=== PATIENT | female | born 1965 | race Caucasian/White ===

== ENCOUNTER → 2019-09-20 13:39 | Outpatient (CLI) | payer BC, SELFPAY ==
--- NOTE | ~2019-09-20 | XR_ITS ---
EXAMINATION: XR lumbar spine 2-3V DATE: 09/20/2019 13:59 INDICATION: Low back pain. TECHNIQUE: 3 views of lumbar spine were obtained. COMPARISON: None. FINDINGS: Bone alignment is normal. Vertebral body heights and intervertebral disc heights are normal . There are endplate osteophytes at a few levels. 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 Surgical clips in the right upper quadrant are likely from cholecystectomy . IMPRESSION: 1. Mild lumbar spondylosis. Reviewed, dictated and finalized at location A. APPLICATION TESTER IMPRESSION: 1. Mild lumbar spondylosis.
== END ==
PROVIDERS: PCP Family Medicine; Visit Provider Family Medicine
DX: M47.896 Other spondylosis, lumbar region (principal)
CPT/HCPCS: 72100

== ENCOUNTER 2019-11-21 16:15 | Inpatient (IN) | payer BC, SELFPAY ==
[2019-11-21] VITALS (16 sets, daily range): BP systolic 107–140; BP diastolic 62–82; PULSE 85–111; RESP 18–35; TEMP 38–39.6; O2SAT 92–99; BMI 41.6
--- NOTE | ~2019-11-21 | XR_ITS ---
EXAMINATION: XR shoulder RT min 2V INDICATION: Polyarthralgia, redness and swelling TECHNIQUE: Four views of the right shoulder are submitted. COMPARISON: None FINDINGS: Normal alignment. No fracture. Glenohumeral and acromioclavicular joint spaces are normal. Soft tissues are unremarkable. Patchy right-sided airspace opacities are again noted. IMPRESSION: No acute osseous abnormality. Reviewed, dictated and finalized at location A.
--- NOTE | ~2019-11-21 | US_ITS ---
US right upper quadrant DATE: 11/23/2019 10:08 INDICATION: Elevated liver function tests. Elevated serum bilirubin. TECHNIQUE: Real-time imaging of liver, pancreas, gallbladder COMPARISON: None FINDINGS: The gallbladder is surgically absent. The common bile duct measures 6.5 mm diameter. The liver is enlarged. No hepatic space occupying mass lesion is detected. Normal hepatopedal portal v enous flow. The pancreatic duct measures up to 3 mm. IMPRESSION: Mild prominence of the common bile duct and pancreatic duct; consider MRCP or ERCP given elevated serum bilirubin level Status post cholecystectomy Reviewed, dictated and finalized at Location A. Reviewed, dictated and finalized at location A. IMPRESSION: Mild prominence of the common bile duct and pancreatic duct; consid er MRCP or ERCP given elevated serum bilirubin level Status post cholecystectomy
--- NOTE | ~2019-11-21 | XR_ITS ---
EXAMINATION: XR knee RT 2V DATE: 11/22/2019 17:11 INDICATION: Polyarthralgia, redness and swelling TECHNIQUE: Two views of the right knee were obtained. COMPARISON: None. FINDINGS: Alignment is normal. No fracture or osteochondral lesion. There is mild tricompartmental os teoarthritis characterized by tiny marginal osteophytes. No joint effusion/synovitis. Soft tissues a re unremarkable. IMPRESSION: 1. No acute osseous abnormality. Reviewed, dictated and finalized at location A.
--- NOTE | ~2019-11-21 | XR_ITS ---
EXAMINATION: XR ankle LT 2V DATE: 11/22/2019 17:11 INDICATION: Polyarthralgia, swelling and redness TECHNIQUE: Two views of the left ankle are obtained.. COMPARISON: 07/24/2015 FINDINGS: Bone alignment is normal. There is moderate osteoarthritis at the tibiotalar joint. Surgica l changes are noted in the distal leg. No fracture is identified. There is mild osteoarthritis of the midfoot. There is mild soft tissue swelling. IMPRESSION: 1. Soft tissue swelling without acute osseous abnormality. Reviewed, dictated and finalized at location A.
--- NOTE | ~2019-11-21 | XR_ITS ---
EXAMINATION: XR elbow LT 2V INDICATION: Polyarthralgia, redness and swelling TECHNIQUE: Two views of the left elbow were obtained. COMPARISON: None available FINDINGS: There is no fracture, dislocation, or subluxation. The bones and joint spaces are normal. N o joint effusion is identified. Soft tissue swelling is noted. And antecubital IV is present. IMPRESSION: 1. Soft tissue swelling without acute osseous abnormality. Reviewed, dictated and finalized at location A.
--- NOTE | ~2019-11-21 | US_ITS ---
US renal BI DATE: 11/24/2019 09:46 INDICATION: Elevated serum creatinine TECHNIQUE: Real-time imaging of kidneys and urinary bladder COMPARISON: None FINDINGS: Right kidney measures 11 cm length, left kidney 10.8 cm length. No renal mass lesion or hyd ronephrosis is evident. There is nonspecific diffuse mild to moderate thickening of the urinary bladder wall. IMPRESSION: No renal mass lesion or hydronephrosis is detected Reviewed, dictated and finalized at Location A. Reviewed, dictated and finalized at location A.
--- NOTE | ~2019-11-21 | XR_ITS ---
XR chest 1V portable DATE: 11/21/2019 16:44 INDICATION: Cough, fever TECHNIQUE: Portable AP chest on 11/21/2019 at 1637 hours COMPARISON: None FINDINGS: Normal heart size. Mild patchy bilateral infiltrates are suggested, greatest in the right lower lobe, with lesser involvement in the left lower lung field. No hilar or mediastinal enlargement. No pleural effusion or pneumothorax IMPRESSION: Patchy mild bilateral infiltrates, right greater than left Reviewed, dictated and finalized at location A.
--- NOTE | 2019-11-21 16:26 | ECG_ITS ---
Measurements Intervals [place] Rate: 109 P: 45 MA: 133 QRS: -16 QRSD: 95 T: 34 QT: 264 QTc: 356 Interpretive Statements SINUS TACHYCARDIA DELAYED PRECORDIAL R/S TRANSITION BASELINE ARTIFACT- I, II, III, AVR, AVL, AVF ABNORMAL ECG Electronically Signed On 11-21-2019 17:33:24 CDT by Omar Atkinson D.O.
--- NOTE | 2019-11-21 16:32 | ED.URI ---
HPI - URI/Sore Throat General Chief Complaint: Upper Respiratory Infection <Vandana Gonzalez PA-C - Last Filed: 11/21/19 19:49> Stated Complaint: FLU LIKE SYMPTOMS <PRASANNA Bates Last Filed: 11/21/19 19:49> Time Seen by Provider: 11/21/19 16:25 <PRASANNA Bates Last Filed: 11/21/19 19:49> Source: patient <PRASANNA Bates Last Filed: 11/21/19 19:49> Mode of arrival: EMS <PRASANNA Bates Last Filed: 11/21/19 19:49> Limitations: no limitations <PRASANNA Bates Last Filed: 11/21/19 19:49> History of Present Illness HPI Narrative: Pt is a 54 y/o female who presents to the ED, via EMS, with c/o a dry cough and a fever of 102F that started Monday night. Per EMS, pt denied SOB, but her O2 Sat was 93% and they put her on 2L O2. Pt reports associated joint pain including her lt elbow, rt knee, rt shoulder, and lt ankle. Her PCP told her to take Tylenol 325mg every 4 hours. She states that she started having diarrhea so she went and got some imodium. Per EMS, pt was in [place] 2 weeks ago. She took Tylenol at 5AM today. <PRASANNA Bates Last Filed: 11/21/19 19:49> MD elicited complaint: fever (102F) and cough <PRASANNA Bates Last Filed: 11/21/19 19:49> Onset (ago): day(s) (4) <PRASANNA Bates Last Filed: 11/21/19 19:49> Consistency: constant and progressively worsening <PRASANNA Bates Last Filed: 11/21/19 19:49> Relieving factors: nothing <PRASANNA Bates Last Filed: 11/21/19 19:49> Context: recent travel (in [place] 2 weeks ago) <Vandana Gonzalez PA-C - Last Filed: 11/21/19 19:49> Associated symptoms: myalgias and diarrhea <PRASANNA Bates Last Filed: 11/21/19 19:49> Treatments prior to arrival: acetaminophen (325mg every 4 hours) and other (2L O2) <Vandana Gonzalez PA-C - Last Filed: 11/21/19 19:49> Related Data Home Medications: Home Medications Medication Instructions Recorded Confirmed cholecalciferol (vitamin D3) 125 unit PO 08/08/19 mcg (5,000 unit) disintegrating tablet <Vandana Gonzalez PA-C - Last Filed: 11/21/19 19:49> Allergies/Adverse Reactions: Allergies Allergy/AdvReac Type Severity Reaction Status Date / Time morphine Allergy Mild SWEATING, Verified 11/21/19 16:24 STOMACH PAIN codeine Allergy Unknown Swelling Verified 11/21/19 16:24 <Vandana Gonzalez PA-C - Last Filed: 11/21/19 19:49> Review of Systems Review of Systems: All systems reviewed & are unremarkable except as noted in HPI and below <Vandana Gonzalez PA-C - Last Filed: 11/21/19 19:49> Constitutional: Constitutional: Reports body ache(s) and Reports fever(s) (102F) <PRASANNA Bates Last Filed: 11/21/19 19:49> Respiratory: Respiratory: Reports cough (dry) and Denies dyspnea <Vandana Gonzalez PA-C - Last Filed: 11/21/19 19:49> Gastrointestinal: Gastrointestinal: Reports diarrhea <PRASANNA Bates Last Filed: 11/21/19 19:49> Musculoskeletal: Musculoskeletal: Reports arthralgias (lt elbow, rt knee, rt shoulder, and lt ankle) <PRASANNA Bates Last Filed: 11/21/19 19:49> [facility] Past Medical History Medical History: Medical History Angioedema, hereditary HTN (hypertension) <PRASANNA Bates Last Filed: 11/21/19 19:49> Surgical History Surgical History: Surgical History Ankle fracture, left History of cholecystectomy Status post tubal ligation <Vandana Gonzalez PA-C - Last Filed: 11/21/19 19:49> Social History Social History: Social History Smoking status: Never smoker Second hand tobacco smoke exposure: No Alcohol intake: current Substance use: never Substance use type: does not use Gender identity (if verbalized by the patient)
[2019-11-21 16:54] LABS: Basophils Absolute Auto 0.1 K/mm3 (0.0-0.1); Basophils Percent Auto 0.9 % (0.2-1.2); Hematocrit 33.8 % (37.0-47.0); Hemoglobin 11.6 g/dL (12.0-15.0); Immature Granulocyte Absolute 0.06 K/mm3 (0.00-0.031); Immature Granulocyte Percent A 0.7 % (0-0.5); Immature Platelet Fraction Pct 5.3 % (0.9-11.2); Lymphocytes Absolute Auto 0.57 K/mm3 (0.9-3.2); Lymphocytes Percent Auto 6.9 % (18.3-44.2); Mean Corpuscular HGB Conc 34.3 g/dl (32-36); Mean Corpuscular Hemoglobin 30.4 pg (26-34); Mean Corpuscular Volume 88.7 fl (80-100); Mean Platelet Volume 11.1 fl (7.4-10.4); Monocytes Absolute Auto 0.4 K/mm3 (0.1-0.6); Monocytes Percent Auto 5.4 % (2.6-8.5); Neutrophils Absolute Auto 7.1 K/mm3 (1.3-6.7); Neutrophils Percent Auto 86.1 % (45.5-73.1); Platelet Count Result 64 k/mm3 (150-375); Red Blood Count 3.81 M/mm3 (4.2-5.4); White Blood Count 8.2 K/mm3 (4.5-10.0)
[2019-11-21 17:05] LABS: Lactic Acid Reflex 1.2 mmol/L (0.7-2.1)
[2019-11-21] MEDS: SODIUM CHLORIDE 0.9% IV 500 ML 999 ML IV CONT (17:11)
[2019-11-21 17:16] LABS: Alanine Aminotransferase 87 U/L (4-35); Albumin Level 3.5 g/dL (3.5-5.1); Alkaline Phosphatase 135 U/L (38-126); Aspartate Amino Transferase 121 U/L (14-36); Bilirubin,Total 1.6 mg/dL (0.2-1.3); Blood Urea Nitrogen 13 mg/dL (7-17); Calcium 8.1 mg/dL (8.4-10.2); Carbon Dioxide 25 mmol/L (22-30); Chloride 96 mmol/L (98-107); Estimated Glomerular Filt Rate > 60; Glucose 115 mg/dL (65-105); Lactate Dehydrogenase 783 U/L (313-618); Potassium 3.2 mmol/L (3.4-5.0); Sodium 132 mmol/L (137-145)
[2019-11-21 17:29] LABS: Alveolar/Arterial O2 Gradient 43.7 mmHg; Base Excess ABG 1.5 mEq/l (+/-2.0); Carboxyhemoglobin 0.6 % THb (0-2.0); Fractional Inspired Oxygen 21 %; Methemoglobin ABG 0.2 %THb (0-1.5); Oxygen Content ABG 16.3 %vol (16.0-22.0); Oxygen Saturation ABG 95.4 % (95.0-100.0); Oxyhemoglobin 93.8 % THb (90.0-100.0); PCO2 ABG 31.1 mmHg (35.0-45.0); PO2 ABG 68.8 mmHg (80.0-100.0); PO2 FiO2 Ratio Arterial Blood 3.28 %; Reduced Hemoglobin 5.4 %THb (0-5.0); Total Hemoglobin 12.3 g/dL (12.0-18.0); pH ABG 7.505 (7.350-7.450)
[2019-11-21 17:30] LABS: Device ROOM AIR; Modified Allen's Test Pass; Site Drawn RIGHT RADIAL
[2019-11-21 17:58] LABS: CRP > 45.0 mg/dL (<1.0)
[2019-11-21] MEDS: POTASSIUM CHLORIDE 20 MEQ TABLET 40 MEQ PO (18:39)
--- NOTE | 2019-11-21 18:40 | PC.NURSE ---
Placed on 2L oxygen per verbal orers by EDP HEATH Ross
--- NOTE | 2019-11-21 21:03 | PC.NURSE ---
Patient report faxxed to 3rd floor at 2046.
[2019-11-21 21:16] LABS: Add Urine Microscopic? YES; Amorphous Sediment Urine Few; Appearance Urine Cloudy (Clear); Bacteria Urine Trace /hpf; Bilirubin Urine Negative (Negative); Blood Urine Negative (Negative); Color Urine Amber (Yellow); Glucose Urine UA Negative (Negative); Ketones Urine Negative (Negative); Leukocyte Esterase Ur Negative LEU/UL (Negative); Mucus Urine Rare /lpf; Nitrate Urine Negative (Negative); Protein Urine 2+ mg/dL (Negative); Specific Grav Ur 1.018 (1.001-1.035); Squamous Epithelial Cell Urine Many /hpf (Few)
--- NOTE | 2019-11-21 21:40 | ADMGEN ---
This patient, Hillary Toure, was admitted to [facility] Surg Room 329-01. Patient/family oriented to hospital policies and general routines including ID bracelet, bed and alarms, visiting hours, pain management, procedures, bathroom and other care routines, personal items, smoking policy, room service/diet, and visiting hours. Valuables list has been completed. Information on how to activate the Rapid Response Team has been discussed. Patient/Family are encouraged to report perceived risks to care and to ask questions if they do not understand what they are told or what they should do.
[2019-11-22] VITALS (18 sets, daily range): BP systolic 117–152; BP diastolic 67–81; PULSE 90–127; RESP 18–22; TEMP 37.1–39.7; O2SAT 93–97
--- NOTE | 2019-11-22 | ECHO_ITS ---
Patient Info Name: Hillary Toure Age: 54 years : 1965 Gender: Female Ht: 65 in Wt: 250 lbs BSA: 2.34 m2 HR: 100 bpm BP: 117 / 81 mmHg Heart Rhythm: Sinus Rhythm Technical Quality: Good Exam Date: 11/22/2019 11:56 AM Exam Location: [facility] Pulmonary Patient Status: Inpatient Admit Date: 11/21/2019 Staff Ordering Physician: Ese Saldana PA-C Beet Topper: Khoa Zhu RDCS Attending Provider: Ese Saldana PA-C Referring Physician: Les MARROQUIN; Exam Type: CA echo doppler color flow Study Info Indications - Concern for Endocarditis 780.6 - Fever Complete two-dimensional, color flow and Doppler transthoracic echocardiogram is performed. Strain analysis performed. History/Risk Factors HTN, positive blood cultures, SOB, PNA, hypoxia, murmur. Summary 1. Left ventricular chamber dimension is mildly enlarged. 2. Left ventricular systolic function is normal, estimated at 50-55%. 3. Left ventricular septal wall motion is abnormal with septal motion related to bundle branch block. 4. The left ventricular diastolic function is abnormal. 5. E/e' 10 is mildly elevated. 6. Global longitudinal strain is normal at -17.8%. 7. Left atrial chamber dimension is mildly enlarged. 8. There is mild aortic valve sclerosis. 9. Mild pulmonary hypertension, estimated pulmonary arterial systolic pressure is 45 mmHg. Left Ventricle E/e' 10 is mildly elevated. Global longitudinal strain is normal at -17.8%. Left ventricular chamber dimension is mildly enlarged. Left ventricular systolic function is normal, estimated at 50-55%. Left ventricular septal wall motion is abnormal with septal motion related to bundle branch block. The left ventricular diastolic function is abnormal. Right Ventricle Right ventricular chamber dimension is normal. Right ventricular systolic function is normal. Left Atria Left atrial chamber dimension is mildly enlarged. Right Atria Right atrial chamber dimension is normal. Aortic Valve The aortic valve is trileaflet. There is mild aortic valve sclerosis. There is no aortic valve stenosis. There is no aortic valve regurgitation. No aortic valve vegetation visualized. Pulmonic Valve There is no pulmonic regurgitation. No pulmonic valve vegetation visualized. Mitral Valve There is no mitral valve stenosis. There is no mitral valve regurgitation. No mitral valve vegetation visualized. Tricuspid Valve There is no tricuspid valve regurgitation. Mild pulmonary hypertension, estimated pulmonary arterial systolic pressure is 45 mmHg. No tricuspid valve vegetation visualized. Pericardium/Pleural There is no pericardial effusion. Inferior Vena Cava Normal inferior vena cava with >50% collapse upon inspiration consistent with normal right atrial pressure, 5 mmHg. Aorta The aortic root size at the sinus of Valsalva is normal. Left Ventricular Outflow Tract Name Value Normal LVOT 2D LVOT Diameter 1.7 cm LVOT Doppler LVOT Peak Gradient 9 mmHg LVOT Mean Gradient 5 mmHg
--- NOTE | 2019-11-22 01:13 | PM.IMHP ---
H&P: HPI History of Present Illness Chief complaint: Joint pain, fever, cough Narrative: Date and time of patient contact: 12/11/2019 at 11:40 p.m. Hillary Toure is a 54 year old female with a past medical history of hypertension who presented to the ER with fever and viral symptoms started on November 10. The patient reports that she had traveled to [place] to receive a furniture delivery at her new home down there. She returned from [place] on November 02. Then on November 05 she had an appointment at her dentist where they noticed and low temperature of 95.5?. However she denied started feeling ill until November 10 when she developed a fever and dry cough. She also reported fatigue and body aches. As time progressed her cough worsened and she spiked temperatures as high as 102.5 at home. She also developed arthralgias 3 days ago starting in her left elbow, left knee, right shoulder, and left ankle. She knows her joints were swollen and tender to touch. She did notice some mild erythema to her left elbow couple of days into her arthralgia symptoms. She also developed diarrhea, nausea and vomiting. She has also had anorexia. She has subjectively felt confused. She reports that her left ankle does intermittently swell ever since she had an ORIF several years ago. Usually the swelling goes down with rest. She does not think that the swelling is more so than her baseline. However she does not usually developed swelling in the extremity and left she has been standing on it for a while. When the patient arrived to the ER her temperature was a 103.3?. She received IV Tylenol, azithromycin, and Rocephin. Given her high likelihood for COVID-19 associated with poor prognostic indicators including thrombocytopenia, elevated CRP, elevated LFTs and elevated LDH with accompanying hypoxemia the patient was admitted to the hospital for care. She reports that her has remained asymptomatic. Review of Systems Review of Systems: Narrative: 12 systems were reviewed with pertinent positives and negatives per HPI. Except as documented in the HPI, all other systems were reviewed and are negative. [facility] Past Medical History Medical History (Updated 11/22/19 @ 01:42 by Brie Chao DO) Angioedema, hereditary Endometriosis HTN (hypertension) Surgical History Surgical History (Updated 11/22/19 @ 01:19 by Brie Chao DO) Ankle fracture, left ORIF [address] Armando Mujica History of cholecystectomy Status post tubal ligation Family History Family History Father Hypertension Mother TIA (transient ischemic attack) Other Cerebrovascular accident Family history of alcoholism Family history of cardiovascular disease Family history of gout Social History Social History (Updated 11/22/19 @ 01:22 by Brie Chao DO) Social History: Primary care physician: Dr. Florentino Fuentes Code status: Full code Smoking status: Never smoker Second hand tobacco smoke exposure: No Alcohol intake: current Alcohol use details: In moderation. Substance use: never Substance use type: does not use Living arrangements: with family Additional living arrangements comments: She lives with her Taj. Her and her recently bought a house in [place]. Occupation/Education: occupation Additional occupation/education comments: She is employed in the [employer] industry. Gender identity (if verbalized by the patient): Female Spiritual care concerns: No Agree to blood products: Yes Meds Home Medications and Allergies Home Medications Medication Instructions Recorded Confirmed Type cholecalciferol (vitamin D3) 125 5,000 unit PO DAILY 08/08/19 11/21/19 History mcg (5,000 unit) disintegrating tablet labetalol 200 mg tablet 200 mg PO Q12H #180 tablet 09/27/19 11/21/19 Rx acetaminophen [Tylenol] 650 mg PO Q4-6H PRN
[2019-11-22] MEDS: SODIUM CHLORIDE 0.9% IV 1,000 ML 100 ML IV CONT ×2 (02:00→12:12)
[2019-11-22] MEDS: ACETAMINOPHEN 325 MG TABLET 650 MG PO (02:25)
[2019-11-22 06:16] LABS: Basophils Absolute Auto 0.1 K/mm3 (0.0-0.1); Basophils Percent Auto 0.8 % (0.2-1.2); Hematocrit 33.5 % (37.0-47.0); Hemoglobin 11.6 g/dL (12.0-15.0); Immature Granulocyte Absolute 0.18 K/mm3 (0.00-0.031); Immature Granulocyte Percent A 1.8 % (0-0.5); Immature Platelet Fraction Pct 6.6 % (0.9-11.2); Lymphocytes Percent Auto 9.2 % (18.3-44.2); Mean Corpuscular HGB Conc 34.6 g/dl (32-36); Mean Corpuscular Hemoglobin 30.8 pg (26-34); Mean Corpuscular Volume 88.9 fl (80-100); Mean Platelet Volume 11.8 fl (7.4-10.4); Monocytes Absolute Auto 0.6 K/mm3 (0.1-0.6); Monocytes Percent Auto 6.1 % (2.6-8.5); Neutrophils Absolute Auto 8.1 K/mm3 (1.3-6.7); Neutrophils Percent Auto 82.1 % (45.5-73.1); Platelet Count Result 63 k/mm3 (150-375); Red Blood Count 3.77 M/mm3 (4.2-5.4); Red Cell Distribution Width 14.1 % (11.5-14.5); White Blood Count 9.8 K/mm3 (4.5-10.0)
[2019-11-22 06:19] LABS: Alanine Aminotransferase 82 U/L (4-35); Albumin Level 3.3 g/dL (3.5-5.1); Alkaline Phosphatase 144 U/L (38-126); Aspartate Amino Transferase 87 U/L (14-36); Blood Urea Nitrogen 13 mg/dL (7-17); Carbon Dioxide 23 mmol/L (22-30); Chloride 101 mmol/L (98-107); Estimated CRCL calculation 116 ml/min; Estimated Glomerular Filt Rate > 60; Glucose 111 mg/dL (65-105); Magnesium 2.2 mg/dL (1.6-2.3); Potassium 3.3 mmol/L (3.4-5.0); Sodium 135 mmol/L (137-145)
[2019-11-22] MEDS: GUAIFENESIN 200 MG/10 ML UDC PO (06:42)
[2019-11-22 06:52] LABS: Platelet Estimate Decreased (Adequate)
[2019-11-22] MEDS: LABETALOL HCL 100 MG TABLET 200 MG PO ×2 (08:30→21:33)
--- NOTE | 2019-11-22 08:42 | PC.NURSE ---
Ese Saldana aware of positive blood cultures x 2
--- NOTE | 2019-11-22 10:34 | PM.IMPN ---
Progress Note: A&P Assessment and Plan (1) Bacteremia: Code(s): R78.81 - Bacteremia Status: Acute Assessment and Plan: Blood cultures reveal areobic and anaerobic gram positive cocci in clusters. She has several painful joints. Source of entry may be related to oral sores. Patient is febrile., but other vitals are stable. - Continue Ceftriaxone and Vancomycin - Will consult infectious disease - Order echo due to concern for endocarditis - Will plan to repeat blood cultures in several days - Continue tylenol prn fever. (2) Polyarthralgia: Code(s): M25.50 - Pain in unspecified joint Status: Acute Assessment and Plan: Patient complaining of arthralgia in right shoulder, left elbow, right knee, and left ankle. Left elbow is warm, erythematous, and inflamed. - Consult Orthopedics due to concerns for septic joint - X-ray affected joints to evaluate for effusion - Order rapid strep to rule out possible rheumatic fever (3) Pneumonia: Qualifiers: Laterality: bilateral Lung location: lower lobe of lung Pneumonia type: due to unspecified organism Qualified Code(s): J18.9 - Pneumonia, unspecified organism Code(s): J18.9 - Pneumonia, unspecified organism Status: Acute Assessment and Plan: CXR revealed bilateral patchy infiltrates with right greater than left. She was tested for COVID-19 and results pending. She has recent history of air travel. Influenza A and B negative. She has previously been taking cough suppresants which have not improved her cough. She has been maintaining oxygen saturations of 95% on room air. - Continue Azithromycin and Ceftriaxone - Start Mucinex and Cornet to help mobilize secretions. - Continue IV fluids (4) Hypokalemia: Code(s): E87.6 - Hypokalemia Status: Acute Assessment and Plan: Potassium at 3.3 this morning. - Replete with 40 mEq potassium - Recheck potassium this afternoon (5) Thrombocytopenia: Code(s): D69.6 - Thrombocytopenia, unspecified Status: Acute Assessment and Plan: Patient has low platelets at 63. No leukocytosis in the setting of acute infection. There is concern for marrow suppression. - Will continue to monitor platelet count - Continue daily CBC with diff. Subjective Date/time seen: 11/22/19 10:34 Interval history: Date of service: 11/22/2019 Ms. Toure is seen and reports she is very anxious today and is tearful on assessment. She reports ongoing cough and SOB that is worse when she talks or moves. She is on room air. If she lays still, her SOB improves. She denies chest pain. She continues to have fevers but denies chills. She denies dizziness or lightheadedness. She continues to complain of joint pain. She reports that pain started in her left elbow, then she had pain in her right knee, then left ankle, and finally right shoulder. She reports they are warm and swollen and painful with movement. Her right shoulder is most bothersome. She denies any rashes or skin changes. She recently had an bilingual customer service appointment and has several sores in her mouth secondary to braces. She had an episode of diarrhea this morning. She is urinating without difficulty. She reports she has not been sleeping as she is in pain and feeling anxious. Review of Systems Review of Systems: Narrative: A 12 point review of systems was reviewed and unremarkable except as noted in HPI and below Constitutional: weakness, fatigue, fevers, no dizziness or lightheadedness EENT: no visual disturbances, no difficulty hearing, no rhinorrhea, no dysphagia, mouth sores CV: no chest pain, SOB Respiratory: cough, congestion GI: no abdominal pain, no nausea or vomiting, diarrhea : no dysuria, no urgency or frequency, no hematuria Skin: no rashes or lesions MSK: arthralgia as per HPI Neuro: no headache, no memory loss, no confusion Psych: anxiety, no depression Heme: no bleeding or bruising Endo
[2019-11-22] MEDS: LOPERAMIDE HCL 2 MG CAPSULE PO (12:10)
[2019-11-22] MEDS: POTASSIUM CHLORIDE 20 MEQ TABLET 40 MEQ PO ×2 (12:10→18:12)
[2019-11-22 15:23] LABS: Potassium 3.3 mmol/L (3.4-5.0)
[2019-11-22] MEDS: IBUPROFEN 400 MG TABLET PO (19:28)
[2019-11-23] VITALS (13 sets, daily range): BP systolic 111–123; BP diastolic 70–76; PULSE 81–105; RESP 18–20; TEMP 36.4–37.8; O2SAT 94–97
[2019-11-23 06:33] LABS: Basophils Percent Auto 0.1 % (0.2-1.2); Eosinophils Absolute Auto 0.1 K/mm3 (0-0.3); Eosinophils Percent Auto 0.4 % (0-4.4); Hematocrit 29.3 % (37.0-47.0); Hemoglobin 9.9 g/dL (12.0-15.0); Immature Granulocyte Absolute 0.12 K/mm3 (0.00-0.031); Immature Granulocyte Percent A 0.9 % (0-0.5); Immature Platelet Fraction Pct 6.2 % (0.9-11.2); Lymphocytes Absolute Auto 1.03 K/mm3 (0.9-3.2); Lymphocytes Percent Auto 7.8 % (18.3-44.2); Mean Corpuscular HGB Conc 33.8 g/dl (32-36); Mean Corpuscular Hemoglobin 30.9 pg (26-34); Mean Corpuscular Volume 91.6 fl (80-100); Mean Platelet Volume 12.1 fl (7.4-10.4); Monocytes Absolute Auto 0.8 K/mm3 (0.1-0.6); Monocytes Percent Auto 5.8 % (2.6-8.5); Neutrophils Absolute Auto 11.3 K/mm3 (1.3-6.7); Platelet Count Result 78 k/mm3 (150-375); White Blood Count 13.3 K/mm3 (4.5-10.0)
[2019-11-23 06:45] LABS: Alanine Aminotransferase 64 U/L (4-35); Albumin Level 2.7 g/dL (3.5-5.1); Alkaline Phosphatase 124 U/L (38-126); Aspartate Amino Transferase 68 U/L (14-36); Bilirubin,Total 1.8 mg/dL (0.2-1.3); Blood Urea Nitrogen 20 mg/dL (7-17); Calcium 7.2 mg/dL (8.4-10.2); Carbon Dioxide 19 mmol/L (22-30); Chloride 103 mmol/L (98-107); Estimated CRCL calculation 46 ml/min; Estimated Glomerular Filt Rate 34; Glucose 116 mg/dL (65-105); Magnesium 2.2 mg/dL (1.6-2.3); Potassium 3.3 mmol/L (3.4-5.0); Sodium 131 mmol/L (137-145)
[2019-11-23] MEDS: LABETALOL HCL 100 MG TABLET 200 MG PO ×2 (09:59→20:54)
[2019-11-23] MEDS: POTASSIUM CHLORIDE 20 MEQ TABLET 40 MEQ PO (10:00)
[2019-11-23] MEDS: LORATADINE 10 MG TABLET PO (10:00)
[2019-11-23] MEDS: CHOLECALCIFEROL 1,000 UNIT TABLET 5000 UNITS PO (10:00)
--- NOTE | 2019-11-23 11:18 | PM.CNOR ---
Assessment and Plan Assessment and plan (1) Arthralgia of multiple joints: Code(s): M25.50 - Pain in unspecified joint Status: Acute (2) Olecranon bursitis, left elbow: Code(s): M70.22 - Olecranon bursitis, left elbow Status: Acute Assessment and Plan: 54-year-old female with multiple joint pains in the setting of a pneumonia, septicemia, and possible Covid 19 infection. Her rapid response of pain to the administration of antibiotics is encouraging and merits watchful waiting. Regarding the olecranon bursa, there is some fluctuance there but no irritability at this point in the erythema over the elbow was just about resolved. May need to aspirate this at some point. Her thrombocytopenia and other elevated indices are concerning and at this point she would be considered not a great surgical risk. Thank you for the consultation. I will continue to follow during the hospitalization. History of Present Illness HPI Consult date: 11/23/19 Consult reason: other (Joint pains) Chief complaint: Bilateral pneumonia, Hypoxia Narrative: 54-year-old female who has been admitted with pneumonia and septicemia. She is also experiencing joint pains. Trouble began in her left elbow about five days ago and then started in her right knee. Following that she had pain in her right shoulder and left ankle. Since getting started on the antibiotics last night she said that the majority of her pains have disappeared. She is considered likely a Covid 19 patient as those results are pending. Review of Systems Eyes: Eyes: Reports no additional eye complaints ENT: Reports system reviewed and no additional complaints, except as documented Cardiovascular: Cardiovascular: Denies chest pain at rest and Denies dyspnea Respiratory: Respiratory: Reports no additional respiratory complaints and Denies dyspnea Gastrointestinal: Gastrointestinal: Reports no additional gastrointestinal complaints Musculoskeletal: Musculoskeletal: Reports as per HPI Integumentary/Breasts: Skin/Breast: Reports system reviewed and no additional complaints, except as docu Neurologic: Reports as per HPI Endocrine: Endocrine: Reports excessive sweating (With fever) and Reports fatigue (Over the past week) Hematologic/Lymphatic: Hematologic/Lymphatic: Denies easy bleeding and Denies easy bruising PMFSH Past Medical History Medical History Angioedema, hereditary Endometriosis HTN (hypertension) Surgical History Surgical History Ankle fracture, left ORIF [address] Armando Mujica History of cholecystectomy Status post tubal ligation Family History Family History Father Hypertension Mother TIA (transient ischemic attack) Other Cerebrovascular accident Family history of alcoholism Family history of cardiovascular disease Family history of gout Social History Social History Social History: Primary care physician: Dr. Florentino Fuentes Code status: Full code Smoking status: Never smoker Second hand tobacco smoke exposure: No Alcohol intake: current Alcohol use details: In moderation. Substance use: never Substance use type: does not use Living arrangements: with family Additional living arrangements comments: She lives with her Taj. Her and her recently bought a house in [place]. Occupation/Education: occupation Additional occupation/education comments: She is employed in the [employer] industry. Gender identity (if verbalized by the patient): Female Spiritual care concerns: No Agree to blood products: Yes Meds Home Medications and Allergies Home Medications Medication Instructions Recorded Confirmed Type cholecalciferol (vitamin D3) 125 5,000 unit P
--- NOTE | 2019-11-23 12:53 | PM.IMPN ---
Progress Note: A&P Assessment and Plan (1) Bacteremia: Code(s): R78.81 - Bacteremia Status: Acute Assessment and Plan: Blood cultures positive for S. aureus. She has several painful joints. Source may be related to oral sores or respiratory infection. She was febrile up to 103.4 on 11/21. She has remained afebrile today. TTE does not reveal vegetations. - Continue Ceftriaxone and Vancomycin. Dr. Guillen is following and recommendations are appreciated. - Await sensitivities of blood cultures - Order sputum culture to determine causative organism - Stop Tylenol prn fever due to LFT and hepatomegaly. - Will give intermittent doses of ibuprofen prn fever but will limit due to renal function and pending COVID-19 test. (2) Polyarthralgia: Code(s): M25.50 - Pain in unspecified joint Status: Acute Assessment and Plan: Patient complaining of arthralgia in right shoulder, left elbow, right knee, and left ankle. X-rays of joints reveal soft tissue swelling in ankle and elbow. No abnormalities of shoulder and knee. Arthralgia is improving. - Dr. Alas is following due to concern for septic joint. Will continue to monitor - Order uric acid level to rule out gout, although small joint involvement is minimal (3) Pneumonia: Qualifiers: Laterality: bilateral Lung location: lower lobe of lung Pneumonia type: due to unspecified organism Qualified Code(s): J18.9 - Pneumonia, unspecified organism Code(s): J18.9 - Pneumonia, unspecified organism Status: Acute Assessment and Plan: CXR revealed bilateral patchy infiltrates with right greater than left. She was tested for COVID-19 and results pending. She has recent history of air travel. Influenza A and B negative. She has previously been taking cough suppresants which have not improved her cough. She has been maintaining oxygen saturations of 95% on room air. - Continue Ceftriaxone. Azithromycin stopped per Dr. Guillen - Continue Mucinex and Cornet to help mobilize secretions. - Continue IV fluids (4) Acute kidney failure: Code(s): N17.9 - Acute kidney failure, unspecified Status: Acute Assessment and Plan: Creatinine 0.7 at presentation and increased to 1.6 today. Unlikely pre-renal as she has been receiving IV fluids. Bladder scan showed no urinary retention. May be intrinsic due to antibiotic use. - Order urine eosinophils to evaluate for AIN. - Order urine electrolytes. - Continue IV fluids - Continue to monitor kidney function. (5) Hypokalemia: Code(s): E87.6 - Hypokalemia Status: Acute Assessment and Plan: Potassium at 3.3 this morning. May be related to GI losses from diarrhea. - Replete with 40 mEq potassium - Continue to monitor potassium level (6) Thrombocytopenia: Code(s): D69.6 - Thrombocytopenia, unspecified Status: Acute Assessment and Plan: Patient has low platelets at 78. Small increase from yesterday 65. - Continue to monitor CBC. (7) Elevated liver enzymes: Code(s): R74.8 - Abnormal levels of other serum enzymes Status: Acute Assessment and Plan: LFTs are elevated. Total bili elevated. - Order RUQ US to evaluate liver - Order hepatitis panel - Hold tylenol - Continue to trend LFT. (8) Diarrhea: Code(s): R19.7 - Diarrhea, unspecified Status: Acute Assessment and Plan: Patient experiencing 1 episode of liquid brown stools today and several episodes yesterday. May be attributed to antibiotic use. - Begin probiotic - Begin banatrol dietary supplement. - Continue to monitor Subjective Date/time seen: 11/23/19 12:54 Interval history: Date of service: 11/23/2019 Ms. Toure reports she is feeling better today. She reports that her joint pain is improving. Her left elbow and left ankle pain has nearly resolved and her right shoulder and right knee are both improved.
--- NOTE | 2019-11-23 16:15 | WPDINFPN2 ---
Progress Note: A&P Assessment and Plan (1) Bacteremia: Code(s): R78.81 - Bacteremia Status: Acute Assessment and Plan: IMP 1. Fever due to S. aureus bacteremia with infection. Potential source: LS spine, cutaneous, lung, cannot exclude but unlikely gingival. 2. Arthralgias,secondary to #1, doubt primary source 3. Distant past L ankle fracture, no post op infection REC Stop isolation. Ancef instead of Ctx, and continue vanc # 3, target trough 15-20. MRI of LS spine. Repeat BCs. TTE = no infection, DARYL is unnecessary. Will need 4-6 weeks IV rx. Subjective Date/time seen: 11/23/19 16:15 Objective Data Vital Signs Vital Signs: Vital Signs - 24 hr 11/22/19 18:00 11/22/19 19:28 11/22/19 20:00 Temperature 39.7 C H 39.7 C H Pulse Rate 125 H 118 H Respiratory Rate 22 H Blood Pressure 152/77 H Pulse Oximetry 96 11/22/19 21:32 11/22/19 21:33 11/22/19 22:00 Temperature 37.2 C 37.2 C Pulse Rate 108 H 108 H Respiratory Rate 22 H Blood Pressure 126/67 Pulse Oximetry 94 11/23/19 00:00 11/23/19 02:00 11/23/19 04:00 Temperature 36.4 C Pulse Rate 82 87 81 Respiratory Rate 20 Blood Pressure 121/72 Pulse Oximetry 96 11/23/19 06:00 11/23/19 09:59 11/23/19 10:00 Temperature 37.1 C 36.7 C Pulse Rate 90 90 87 Respiratory Rate 20 20 Blood Pressure 123/70 123/76 Pulse Oximetry 97 97 11/23/19 14:00 11/23/19 14:39 Temperature 36.8 C 36.8 C Pulse Rate 82 82 Respiratory Rate 18 18 Blood Pressure 111/73 111/73 Pulse Oximetry 97 97 Intake/Output Intake/Output: Intake & Output 11/20/19 11/21/19 11/22/19 11/23/19 23:59 23:59 23:59 23:59 Intake Total 900 4090 420 Output Total 500 750 Balance 900 3590 -330 Meds/Results Medications: Active Medications Generic Name Dose Route Start Last Admin Trade Name Freq PRN Reason Stop Dose Admin Acetaminophen 650 mg 11/22/19 01:09 11/22/19 02:25 Tylenol Tablet PO 650 mg Q4-6H PRN Administration Pain Rated 1-3 Artificial Tears 1 drop 11/22/19 08:38 Artificial Tears EACH EYE PRN PRN Dry Eye(s) Benzocaine 1 applic 11/22/19 11:17 Anbesol Maximum Strength Gel BY MOUTH QID PRN Oral Pain Guaifenesin 200 mg 11/22/19 05:00 11/22/19 06:42 Guaifenesin Liq PO 200 mg Q4H PRN Administration Cough Sodium Chloride 1,000 mls @ 100 mls/hr 11/22/19 01:10 11/22/19 12:12 Normal Saline Iv IV CONT 100 mls/hr .Q10H ESTER Administration Vancomycin HCl 2,000 mg in 500 mls @ 250 mls/hr 11/22/19 07:00 11/23/19 09:58 Vancomycin 2,000 Mg/D5w 500 Ml IVPB 250 mls/hr Q12H ESTER Administration Cefazolin Sodium 2 gm in 50 mls @ 100 mls/hr 11/23/19 16:15 Ancef 2 Gm/D5w 50 Ml IVPB Q8HR ESTER Labetalol HCl 200 mg 11/22/19 09:00 11/23/19 09:59 Trandate PO 200 mg Q12HR ESTER Administration Loratadine 10 mg 11/22/19 09:00 11/23/19 10:00 Claritin PO 10 mg DAILY ESTER Administration Melatonin 5 mg 11/22/19 11:13 Melatonin PO HS PRN insomnia Ondansetron HCl 4 mg 11/22/19 01:31 Zofran Inj IV PUSH Q6H PRN Nausea And Vomiting Saccharomyces Boulardii 250 mg 11/23/19 17:00 Florastor PO BID ESTER Vitamin D 5,000 unit 11/22/19 09:00 11/23/19 10:00 Vitamin D PO 5,000 unit DAILY ESTER Administration Radiology Results: ITS Impressions Chest X-Ray 11/21/19 17:01 IMPRESSION: Patchy mild bilateral infiltrates, right greater than left Ankle X-Ray 11/22/19 17:13 IMPRESSION: 1. Soft tissue swelling without acute osseous abnormality. Knee X-Ray 11/22/19 17:18 IMPRESSION: 1. No acute osseous abnormality. Elbow X-Ray 11/22/19 17:27 IMPRESSION: 1. Soft tissue swelling without acute osseous abnormality. Shoulder X-Ray 11/22/19 17:28 IMPRESSION: No acute osseous abnormality. Upper Quadrant Ultrasound 11/23/19 11:15 IMPRESSION: Mild prominence of the com
[2019-11-23] MEDS: ceFAZolin 2 GM/D5W 50 ML 2 GM/50 ML BAG IVPB (18:24)
[2019-11-23] MEDS: SACCHAROMYCES BOULARDII 250 MG CAPSULE PO (18:25)
[2019-11-23] MEDS: GUAIFENESIN 200 MG/10 ML UDC PO (18:30)
[2019-11-23 18:37] LABS: Uric Acid 5.8 mg/dL (2.5-7.5)
--- NOTE | 2019-11-23 18:45 | CONS_ITS ---
DATE OF CONSULTATION: 11/23/2019 REASON FOR CONSULTATION: Positive blood cultures. HISTORY OF PRESENT ILLNESS: The patient is a 54-year-old female who had repair of a bimalleolar fracture some 6 years ago at this hospital, operative repair by Dr. Lund, 02/28/2013. There are no postoperative wound infections. She has no other prosthetic devices in place. In July, she had new onset of low lumbar bilateral back pain, which improved temporarily, however, when she was making the bed on 08/15 at her new home in [place], she had recurrent and more severe back pain. She went to local emergency room where analgesics were prescribed. She since then has had plain films of the LS-spine and apparently no abnormalities have been seen. She also was seen in this emergency room on 08/02/2019. She was given naproxen, which she took for about 4 weeks with improvement. She then attended physical therapy until middle of October, has had improvement in the back pain in the interim. Otherwise, she was in her usual state of health until 4 days before admission. She woke up from a nap in the late evening and went to bed at which point she noted to have shaking chills. She was able to sleep tonight, but the following morning still had the chills and now left olecranon pain. The following day, she had right knee pain and the day after right shoulder pain. The chills have persisted and she has had fever at home into the low 39 range on a regular basis. She presented to the emergency room on the afternoon, the , and was admitted. She was started on vancomycin and ceftriaxone, remains on those now. Blood cultures turned positive yesterday. She has had considerable improvement in her arthralgias, except for the right shoulder which remains painful and with diminished range of motion. She is able to walk with the aid of a walker. She has been on no immunosuppressants, nor antibiotics, otherwise in the last 4 months for any reason. She has had several erythematous skin lesions over the right arm, but no other skin injuries or skin breakdown. She has had her intermittent cough in the last 4 days, not productive of purulence nor bloody sputum. There has been no chest pain. No diarrhea. She has had braces on her teeth as concern that they have been irritating the gum lining. ALLERGIES: MORPHINE AND CODEINE. PRESENT MEDICATIONS: Above antibiotics. No immunosuppressants. HABITS: Social drinker. No tobacco. PAST MEDICAL HISTORY: In addition to the above, cholecystectomy, BTL, hypertension, angioedema, endometriosis. REVIEW OF SYSTEMS: Weight gain over the recent years. Edema of the left ankle chronically since her surgery. 14-point review otherwise negative. FAMILY HISTORY: Hypertension, stroke, gout. SOCIAL HISTORY: She has 2 grown children and also 2 grand children. Her mother unfortunately had a shoulder fracture in August and the patient has been assisting her mother with physical therapy appointment. The patient is employed in the [employer] industry. PHYSICAL EXAMINATION: GENERAL: This is a female, who appears her actual age. No acute distress. VITAL SIGNS: On arrival, she was 39.6 and has now defervesced though T-max in last 24 hours 39.7, blood pressure 111/73. She has had no hypotension. Pulse 82, respirations 18, 97% room air. SKIN: Two erythematous lesions of the right anterior upper arm, each about half a centimeter in diameter and nonspecific in appearance, flat. No breaks in the skin. No ulcerations. NODES: No cervical adenopathy. EENT: Conjunctivae are normal. Pupils equal, round, and reactive to light. No paranasal sinus erythema, edema or tenderness. She has had braces on her teeth, but no evidence of gingivitis on oral exam and no thrush. No other oral l
[2019-11-23] MEDS: SODIUM CHLORIDE 0.9% IV 1,000 ML 100 ML IV CONT (18:56)
[2019-11-23 19:09] LABS: Hepatitis B Surface Antigen Negative (Negative); Vancomycin Trough 42.4 ug/mL (10.0-20.0)
[2019-11-23 19:15] LABS: HAV RESULT Negative (Negative); Hepatitis B Core IgM Result Negative (Negative)
[2019-11-23 19:26] LABS: Add Urine Microscopic? YES; Amorphous Sediment Urine Moderate; Appearance Urine Cloudy (Clear); Bacteria Urine Trace /hpf; Bilirubin Urine Negative (Negative); Blood Urine 1+ (Negative); Color Urine Yellow (Yellow); Glucose Urine UA Negative (Negative); Ketones Urine Negative (Negative); Leukocyte Esterase Ur Negative LEU/UL (NEGATIVE); Nitrate Urine Negative (Negative); Protein Urine Negative (Negative); RBC Urine 0-2 /hpf (0-2); Specific Grav Ur 1.005 (1.001-1.035); Squamous Epithelial Cell Urine Few /hpf (Few); Urobilinogen Urine Negative mg/dL (<2.0); WBC Urine 0-3 /hpf (0-3)
[2019-11-23 19:26] LABS: HIV 1/2 Ab P24 Ag Result Negative (Negative); Hepatitis C Virus Antibody Negative (Negative)
[2019-11-23 20:13] LABS: Creatinine Urine 39.2 mg/dL; Sodium Urine Random 6 meq/L
[2019-11-24] VITALS: PULSE 99
[2019-11-24 02:00] VITALS: BP 138/82; PULSE 84; RESP 18; TEMP 37.2; O2SAT 96
[2019-11-24 04:00] VITALS: PULSE 94
[2019-11-24] MEDS: ceFAZolin 2 GM/D5W 50 ML 2 GM/50 ML BAG IVPB (04:44)
[2019-11-24] MEDS: SODIUM CHLORIDE 0.9% IV 1,000 ML 100 ML IV CONT (04:44)
[2019-11-24 05:39] VITALS: BP 138/85; PULSE 100; RESP 18; TEMP 37.4; O2SAT 95
[2019-11-24 06:21] LABS: Basophils Percent Auto 0.2 % (0.2-1.2); Eosinophils Absolute Auto 0.1 K/mm3 (0-0.3); Eosinophils Percent Auto 0.5 % (0-4.4); Hematocrit 28.3 % (37.0-47.0); Hemoglobin 9.9 g/dL (12.0-15.0); Immature Granulocyte Absolute 0.24 K/mm3 (0.00-0.031); Immature Granulocyte Percent A 1.3 % (0-0.5); Lymphocytes Absolute Auto 1.74 K/mm3 (0.9-3.2); Lymphocytes Percent Auto 9.6 % (18.3-44.2); Mean Corpuscular Volume 85.8 fl (80-100); Mean Platelet Volume 11.4 fl (7.4-10.4); Monocytes Absolute Auto 1.1 K/mm3 (0.1-0.6); Monocytes Percent Auto 6.2 % (2.6-8.5); Neutrophils Absolute Auto 14.9 K/mm3 (1.3-6.7); Neutrophils Percent Auto 82.2 % (45.5-73.1); Platelet Count Result 158 k/mm3 (150-375); Red Cell Distribution Width 14.4 % (11.5-14.5); White Blood Count 18.1 K/mm3 (4.5-10.0)
[2019-11-24 06:24] LABS: Alanine Aminotransferase 54 U/L (4-35); Albumin Level 2.7 g/dL (3.5-5.1); Alkaline Phosphatase 136 U/L (38-126); Aspartate Amino Transferase 55 U/L (14-36); Bilirubin,Total 1.3 mg/dL (0.2-1.3); Blood Urea Nitrogen 32 mg/dL (7-17); Calcium 7.7 mg/dL (8.4-10.2); Carbon Dioxide 17 mmol/L (22-30); Chloride 105 mmol/L (98-107); Estimated CRCL calculation 22 ml/min; Estimated Glomerular Filt Rate 14; Glucose 92 mg/dL (65-105); Magnesium 2.4 mg/dL (1.6-2.3); Potassium 3.9 mmol/L (3.4-5.0); Sodium 132 mmol/L (137-145)
[2019-11-24 08:00] VITALS: PULSE 100
[2019-11-24] MEDS: LABETALOL HCL 100 MG TABLET 200 MG PO (09:38)
[2019-11-24] MEDS: ACETAMINOPHEN 325 MG TABLET 650 MG PO ×2 (09:39→14:22)
[2019-11-24] MEDS: SACCHAROMYCES BOULARDII 250 MG CAPSULE PO (09:41)
--- NOTE | 2019-11-24 10:34 | PM.IMPN ---
Progress Note: A&P Assessment and Plan (1) Bacteremia: Code(s): R78.81 - Bacteremia Status: Acute Assessment and Plan: Blood cultures positive for Staph aureus. Source may be related to oral sores or respiratory infection. She was febrile with Tmax of 103.4F on 11/21. She has remained afebrile today. TTE does not reveal vegetations. - Will initiate transfer request to [facility] at request of patient and family. - Continue Cefazolin and Vancomycin. Dr. Guillen is following and recommendations are appreciated. - Continue to monitor Vancomycin trough. Trough elevated today at 42.4. I spoke with Pharmacy who is holding dose until repeat trough. - Await sensitivities of blood cultures - Avoid Tylenol prn fever due to elevated LFT and hepatomegaly. - Will give intermittent doses of ibuprofen prn fever but will limit due to renal function. Patient has been afebrile. She did receive 400 mg ibuprofen on 11/21 due to fever. - Cardiology consult for possible DARYL but will cancel as DARYL will not be required (2) Polyarthralgia: Code(s): M25.50 - Pain in unspecified joint Status: Acute Assessment and Plan: Patient complaining of arthralgia in right shoulder, left elbow, right knee, and left ankle. X-rays of joints reveal soft tissue swelling in ankle and elbow. No abnormalities of shoulder and knee. Arthralgia is improving. Uric acid is wnl. - Dr. Alas is following in the event joint aspiration becomes necessary. Will continue to monitor - Continue to monitor and assess for any new joint involvement. (3) Pneumonia: Qualifiers: Laterality: bilateral Lung location: lower lobe of lung Pneumonia type: due to unspecified organism Qualified Code(s): J18.9 - Pneumonia, unspecified organism Code(s): J18.9 - Pneumonia, unspecified organism Status: Acute Assessment and Plan: CXR revealed bilateral patchy infiltrates with right greater than left. COVID-19 negative. Influenza A and B negative. She has previously been taking cough suppresants which did not improve her cough. She has been maintaining oxygen saturations of 95% on room air. Her cough is improving. - Continue Cefazolin. Previously on Ceftriaxone and Azithromycin which were stopped per Dr. Guillen - Continue Mucinex and Cornet to help mobilize secretions. - Continue IV fluids - Sputum culture ordered and pending. (4) Acute kidney failure: Code(s): N17.9 - Acute kidney failure, unspecified Status: Acute Assessment and Plan: Creatinine 0.7 at presentation, 1.6 on 11/22, and 3.9. Unlikely pre-renal as she has been receiving IV fluids, but may indicate third spacing. Bladder scan showed no urinary retention. May be intrinsic due to antibiotic use although onset is rather soon. Urine sodium and creatinine normal. - Consult nephrology. I spoke to Dr. Anne who will see patient today. Recommendations are appreciated. - Initiate Garcia catheter to measure I&O. - Await results of urine eosinophils to evaluate for AIN. - Continue IV fluids - Continue to monitor kidney function. (5) Hypokalemia: Code(s): E87.6 - Hypokalemia Status: Acute Assessment and Plan: Patient previously hypokalemic which may be related to GI losses from diarrhea she had been previously having. Potassium stable at 3.9 today. - Continue to monitor potassium level (6) Thrombocytopenia: Code(s): D69.6 - Thrombocytopenia, unspecified Status: Acute Assessment and Plan: At presentation, platelets 64. TCP is slowly improving and platelets are 158. May be related to infection. - Continue to monitor CBC. (7) Diarrhea: Code(s): R19.7 - Diarrhea, unspecified Status: Acute Assessment and Plan: Patient experienced liquid brown stools on 11/21 and 11/22. May be attributed to antibiotic use. No episodes of diarrhea overnight or this morning. - Continu probiotic and
--- NOTE | 2019-11-24 11:30 | PM.CNNEP ---
Assessment and Plan Assessment and plan (1) Acute kidney failure: Code(s): N17.9 - Acute kidney failure, unspecified Status: Acute Assessment and Plan: Hillary has acute kidney injury. This is in the setting of Staph sepsis with multiple issues including toxic hepatitis, polyarthralgia, elevated white count and low platelet count. It is tempting to say that all of this is from staph sepsis. Certainly staph sepsis could cause each of these issues including the acute kidney injury. Sometimes there is 3rd spacing with sepsis and so she could have pre renal azotemia. However she is getting IV fluids. Sometimes patients can develop acute tubular necrosis from sepsis. It is a bit strange that she was sick for a week before she came in and then had high fevers the 1st couple of days of her hospital stay but it was not until things were getting better that her kidney started getting worse. Sometimes antibiotics can cause renal failure but usually this is more slow in coming rather than this sharp up turn in creatinine. She did not have previous exposure to vancomycin. She does not have a rash and does not have eosinophilia (however her neutrophilia would hide this sort of thing ). Rhabdomyolysis could occur with infection as well. She did have a little bit of blood in her urine and the liver enzymes could possibly come from the muscle. A vasculitic process could happen in the response to it infection as well. I would doubt if this is something like lupus but were can't rule that completely out in this setting. Will get serology, CPK, urine electrolytes and eosinophils. (2) Bacteremia: Code(s): R78.81 - Bacteremia Status: Acute Assessment and Plan: She has MSSA in the blood. She is on antibiotics (3) Elevated liver enzymes: Code(s): R74.8 - Abnormal levels of other serum enzymes Status: Acute Assessment and Plan: This is most likely due to the infection. (4) Arthralgia of multiple joints: Code(s): M25.50 - Pain in unspecified joint Status: Acute Assessment and Plan: This may be due to infection as well. Dr. Alas is following in case something needs to be aspirated. (5) Thrombocytopenia: Code(s): D69.6 - Thrombocytopenia, unspecified Status: Acute Assessment and Plan: This may be due to infection as well. Is better today. (6) HTN (hypertension): Code(s): I10 - Essential (primary) hypertension Status: Acute Assessment and Plan: Blood pressure has been doing well. 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 History of Present Illness Reason for Consult Consult date: 11/24/19 Chief Complaint Chief complaint: Bilateral pneumonia, Hypoxia History of Present Illness Narrative: Hillary is a very pleasant 54-year-old lady who was previously healthy except for hypertension, hereditary angioedema and endometriosis. Patient's problem started about 1 week ago when she had a fever and a chill. She noted pain in her left elbow. Over the last week she has had fevers often on up to 102.5. She has had progressively more joint pains including right knee, right shoulder, left elbow, and left foot. The ones that happened at 1st her are starting to get better. But the more recent ones are still hurting. She has recent developed some right-sided back pain at the base of her ribs. She also had nausea vomiting diarrhea. Things were just getting worse and worse so she decided to come to the emergency room. There she had a fever above 103. She had a normal white count. Her blood cultures were done she was placed on broad-spectrum antibiotics and she was admitted to the hospital. She was running fevers on the 2nd and the 3rd but late on the 3rd and yesterday and this morning she has not had any more fevers.
[2019-11-24] MEDS: LIDOCAINE 5% PATCH 1 PATCH TRANSDERM (14:21)
--- NOTE | 2019-11-24 14:51 | PC.NURSE ---
Pt transferred to [place] via ambulance at 1444.
--- NOTE | 2019-11-24 18:11 | PM.TDS ---
Transfer Discharge Sum: Prov Provider Date of admission: 11/21/19 19:24 Primary care physician: Florentino Fuentes MD Admitting clinician: Everett Hoskins MD Consults: 11/22/19 Consult to Physician Routine Comment: Spoke with Madonna Valladares @ 1500 ([place]) Consulting Provider: Tonny Alba yardage caller/MD group to consult: Cardiology Reason for consultation: Endocarditis Has provider been notified: Yes Consult to Physician Routine Comment: Spoke with Dr Guillen @ 1505 (,[place]) Consulting Provider: Estuardo Guillen yardage caller/MD group to consult: Dr. Guillen Reason for consultation: Possible endocarditis Has provider been notified: Yes 11/22/19 14:13 Consult to Physician Routine Comment: Spoke with Dr Alas @ 1413 Consulting Provider: Mike Alas yardage caller/MD group to consult: Orthopedics Reason for consultation: Polyarthralgia with erythema and warmth, positive blood cultures Has provider been notified: Yes 11/24/19 Consult to Physician Routine Comment: Consulting Provider: Grupo Anne yardage caller/MD group to consult: Dr. Anne Reason for consultation: STANLEY Has provider been notified: Yes Attending physician on discharge: Edinson Melgar Discharging clinician: Ese Saldana Anticipated date of transfer: 11/24/19 Receiving physician/facility: Dr. Jones/[facility] DS: Diagnosis Admitting Diagnosis Admitting Diagnosis: Pneumonia, unspecified organism Discharge Diagnosis (1) Bacteremia: Code(s): R78.81 - Bacteremia Status: Acute (2) Polyarthralgia: Code(s): M25.50 - Pain in unspecified joint Status: Acute (3) Pneumonia: Qualifiers: Laterality: bilateral Lung location: lower lobe of lung Pneumonia type: due to unspecified organism Qualified Code(s): J18.9 - Pneumonia, unspecified organism Code(s): J18.9 - Pneumonia, unspecified organism Status: Acute (4) Acute kidney failure: Code(s): N17.9 - Acute kidney failure, unspecified Status: Acute (5) Hypokalemia: Code(s): E87.6 - Hypokalemia Status: Acute (6) Thrombocytopenia: Code(s): D69.6 - Thrombocytopenia, unspecified Status: Acute (7) Diarrhea: Code(s): R19.7 - Diarrhea, unspecified Status: Acute (8) Hepatomegaly: Code(s): R16.0 - Hepatomegaly, not elsewhere classified Status: Acute (9) Low back pain: Code(s): M54.5 - Low back pain Status: Acute Transfer Discharge Sum: Med Medications Active and Home Medications: Home Medications cholecalciferol (vitamin D3) 125 mcg (5,000 unit) disintegrating tablet 5,000 unit PO DAILY 08/08/19 [History Confirmed 11/21/19] labetalol 200 mg tablet 200 mg PO Q12H #180 tablet 09/27/19 [Rx Confirmed 11/21/19] acetaminophen [Tylenol] 650 mg PO Q4-6H PRN 11/21/19 [History Confirmed 11/21/19] benzonatate 100 mg capsule 100 mg PO TID PRN 10 Days #30 cap 11/21/19 [Rx Confirmed 11/21/19] loratadine [Claritin] 10 mg PO DAILY 11/21/19 [History Confirmed 11/21/19] polyethylene glycol 400 [Blink Tears] 1 % OPHTHALMIC (EYE) PRN PRN 11/22/19 [History Confirmed 11/22/19] Transfer Discharge Sum: Hosp Hospital Course Hospital course: Hillary Toure is a 54 year old female with a past medical history significant for hypertension who presented to the emergency department on 11/21/19 with complaints of 4 days of fever with Tmax 102.5, cough, and diarrhea, as well as arthralgia in right shoulder, right knee, left elbow, and left ankle. She had been taking tylenol for fever, robitussin for cough, and immodium for diarrhea. She did not get better which prompted her to seek care. She traveled to [place] on 11/03/19. She was admitted to the hospitalist service on 11/21/19. Her blood cultures became positive following admission. She was started on Ceftriaxone and Vancomycin on 11/20. Infectious disease was consulted on 11/22/19. Her blood cultures revealed Staph Aureus on 11/22. She was transitioned
== END 2019-11-24 14:45 | disposition short-term general hospital (02) | DRG 194 ==
LOC: ANHED 18:23 → ANH3MEDSUR 19:58
PROVIDERS: Internal Medicine; Physician Assistant; Admitting Provider Internal Medicine; Emergency Provider Emergency Medicine; PCP Family Medicine; Visit Provider Internal Medicine
DX: J18.9 Pneumonia, unspecified organism (principal); R78.81 Bacteremia; N17.9 Acute kidney failure, unspecified; Z68.41 Body mass index [BMI] 40.0-44.9, adult; M70.22 Olecranon bursitis, left elbow; E87.6 Hypokalemia; D69.6 Thrombocytopenia, unspecified; E66.9 Obesity, unspecified; Z20.828 Contact with and (suspected) exposure to other viral communicable diseases
CPT/HCPCS: 36415; 36600; 71045; 73030; 73070; 73560; 73600; 76705; 76775; 80053; 80074; 80202; 81001; 82375; 82570; 82728; 82805; 83050; 83605; 83615; 83735; 84132; 84300; 84550; 85025; 85055; 85999; 86140; 86703; 87040; 87077; 87081; 87086; 87088; 87147; 87186; 87804; 87880; 93005; 93306; 94667; 96361; 96365; 96367; 99285; A9270; G0432; J0131; J0456; J0690; J0696; J3370; J7030; J7040

== ENCOUNTER → 2020-09-07 13:47 | Outpatient (CLI) | payer BC, SELFPAY ==
--- NOTE | ~2020-09-07 | MM_ITS ---
EXAMINATION: MM screening carl BI w gopal HISTORY: Screening mammogram TECHNIQUE: Craniocaudal and mediolateral oblique 3-D tomosynthesis images were obtained and synthetic 2-D images were generated. CAD analysis was submitted and interpreted. COMPARISON: 06/11/2019, 05/17/2018, 05/2017 bilateral digital screening mammogram examinations BREAST PARENCHYMAL COMPOSITION: The breasts are almost entirely fatty. FINDINGS: There is no evidence of suspicious mass, calcification, or architectural distortion to sugg est malignancy in either breast. There has been no suspicious interval change. IMPRESSION: 1. No mammographic evidence of malignancy. 2. Recommend routine screening mammography in one year. BI-RADS Category 1: Negative.. Reviewed, dictated and finalized at location A. [employer]
== END ==
PROVIDERS: Visit Provider Advanced Practice Midwife
DX: Z12.31 Encounter for screening mammogram for malignant neoplasm of breast (principal)
CPT/HCPCS: 77063; 77067

== ENCOUNTER → 2023-03-31 07:36 | Outpatient (CLI) | payer OTHER, SELFPAY ==
--- NOTE | ~2023-03-31 | MR_ITS ---
EXAMINATION: MR knee RT wo con DATE: 03/31/2023 08:21 INDICATION: Right knee pain TECHNIQUE: Magnetic resonance imaging (MRI) of the right knee was performed without intravenous contr ast. Sequences included coronal PD-weighted FSE, coronal PD-weighted FS FSE, sagittal T2-weighted FS E, sagittal PD-weighted FS FSE and axial PD weighted fat saturated FSE. COMPARISON: None. FINDINGS: Medial compartment: Medial meniscus is normal. Articular cartilage is normal. Lateral compartment: Small radial tear involving the inner third of the posterior horn of the lateral meniscus. There is a separate longitudinal oblique tear extending to the superior articular surface of the body and anter ior horn of the lateral meniscus. There is partial thickness cartilage loss with smooth chondral surf arie along the lateral side of the posterior weightbearing lateral femoral condyle. Nonspecific small focus of subarticular edema-like signal change at the central aspect lateral tibial plateau but with normal appearing overlying cartilage which could be due to bone contusion or stress reaction related to altered weight distribution resulting from the meniscal tear. Patellofemoral compartment: Shallow chondral ulceration with superimposed deeper fissuring centered at the patellar apical ridge with minimal underlying edema-like signal change. Trochlear cartilage is normal. Ligaments and tendons: Anterior and posterior cruciate ligaments are normal. The medial collateral ligament and fibular ilene ateral ligament complex are normal. The extensor mechanism is normal. The visualized medial and later al hamstring tendons as well as the iliotibial band are normal. Fluid: Physiologic amount of fluid in the joint space. No loose osteochondral bodies identified. Osseous/other: Aside from at the lateral tibial plateau there is normal marrow signal throughout. No fracture or pat hologic marrow replacing process. IMPRESSION: 1. Lateral meniscal tears. 2. 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 3. Small focus of subarticular edema-like marrow signal change at the central lateral tibial plateau without evident overlying chondromalacia which could represent a bone contusion in setting of a discr ete trauma or more gradual onset of reactive edema related to altered stress distribution resulting f rom the meniscal tear. Reviewed, dictated and finalized at location B. IMPRESSION: 1. Lateral meniscal tears. 2. 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 3. Small focus of subarticular edema-like marrow signal change at the central l ateral tibial plateau without evident overlying chondromalacia which could repr esent a bone contusion in setting of a discrete trauma or more gradual onset of reactive edema related to altered stress distribution resulting from the menis alex tear.
== END ==
PROVIDERS: PCP Orthopaedic Surgery; Visit Provider Orthopaedic Surgery
DX: M25.561 Pain in right knee (principal); S83.281A Other tear of lateral meniscus, current injury, right knee, initial encounter; M17.11 Unilateral primary osteoarthritis, right knee; M22.41 Chondromalacia patellae, right knee
CPT/HCPCS: 73721

== ENCOUNTER 2023-05-10 00:17 | Day surgery (SDC) | payer OTHER, SELFPAY ==
[2023-05-02 18:15] VITALS: BMI 41.5
--- NOTE | 2023-05-02 18:25 | PC.NURSE ---
Report to the Outpatient Waiting Room, entrance under the green pavilion located off [facility], at 1130 on 05-10-23. Planned Procedure Time: 1330. Time changes happen often and if your time is changed the preop area will call you the afternoon before. - You and your visitor will be asked to self-screen and do not enter if you have any COVID symptoms. - A mask is optional within the hospital at this time. Patients may have clear liquids (water, carbonated beverages, clear teas, apple juice) until 3 hours prior to surgery with a maximum of 20 ounces. 1030 - No food from midnight until time of surgery - Infants may have breast milk until 4 hours before surgery, formula 6 hours prior to surgery. - Children will be allowed to drink immediately following surgery. If applicable, please bring a bottle or sippy cup to assist with drinking. Juice, water, soda, and popsicles are readily available. For infants on formula, please bring formula the day of surgery. Pacifiers are allowed. Take the following medications with a SIP of water the morning of surgery: Pain medicine and muscle relaxers if needed DO NOT STOP ANY OF YOUR OTHER PRESCRIPTION MEDICATIONS PRIOR TO SURGERY ?EXCEPT THE FOLLOWING Medications to discontinue per physician: vitamins and supplements Date to take last dose: 05-07-23 Please no make-up, nail persian, hairspray, perfume, deodorant, or body powder the day of surgery. No jewelry (including any body piercings) or valuables the day of surgery, leave them at home. Please take a shower or bath the night before, or the morning of, surgery with an antibacterial soap. Wear comfortable, loose fitting clothing. Children are encouraged to wear pajamas. - Jewelry must be removed prior to entering the operating room. Rings and piercings that are not removed may be cut off. - The hospital will not accept responsibility for valuables. - Please leave all valuables, including medications, at home the day of surgery. If you are going home after surgery, a licensed refrigerated national truck driver must drive you home. - NO public transportation without another adult if you receive anesthesia. - We recommend that an adult stay with you for 24 hours following discharge. - We also recommend that you do not drive, make important decision, drink alcoholic beverages, or take any drugs that were not prescribed by your health care provider for at least 24 hours after your discharge time. For Pediatric surgeries, we recommend two adults accompany the child home. Follow any additional instructions given to you from your surgeon. If you or anyone in your household have experienced Covid symptoms in the past week, please notify your surgeon or the nurse liaison at the phone number below for possible testing. Telephone instructions given to Hillary Toure and asked if any additional questions and then verbalized understanding. Patient advised to call surgeon office or pre surgery nurse liaison [phone] if any additional questions.
[2023-05-10] VITALS (10 sets, daily range): BP systolic 114–168; BP diastolic 71–89; PULSE 54–71; RESP 12–18; TEMP 36.9–37.2; O2SAT 100; BMI 42.0
--- NOTE | 2023-05-10 07:12 | WPDHPUPDATE1 ---
History and Physical Update Update Date/Time: 05/10/23 07:12 History and Physical has been reviewed, including an updated exam of the patient. There are NO changes in the patient's condition. Risks, benefits, and alternatives have been discussed and questions answered. Patient agrees to proceed with procedure.
[2023-05-10] MEDS: ACETAMINOPHEN 500 MG TABLET 1000 MG PO (09:21)
[2023-05-10] MEDS: CELECOXIB 200 MG CAPSULE PO (09:22)
[2023-05-10] MEDS: LACTATED RINGERS 1,000 ML 30 ML IV CONT ×2 (09:27→12:20)
--- NOTE | 2023-05-10 09:58 | WPDANESEPPF ---
Anes - Initial Pre Proc Eval Procedure: Operation Date: 05/10/23 10:30 Proposed Procedures p Right Knee Arthroscopy - Armando Mujica MD Date/Time: 05/10/23 09:58 Surgeon: Armando Mujica MD Pre Op Diagnosis: right lateral meniscus tear Patient Data Age: 57 Gender: F Height: 1.65 m Weight: 114.7 kg Last Vital Signs Temp 36.9 C 05/10/23 08:34 Pulse 68 05/10/23 08:34 Resp 18 05/10/23 08:34 BP 168/89 H 05/10/23 08:34 Pulse Ox 100 05/10/23 08:34 O2 Del Method Room Air 05/10/23 08:34 Allergies Allergy/AdvReac Type Severity Reaction Status Date / Time spinach Allergy Intermediate Nausea and Verified 05/02/23 17:40 Vomiting codeine Allergy Mild Swelling Verified 05/02/23 17:40 morphine Allergy Mild SWEATING, Verified 05/02/23 17:40 STOMACH PAIN Home Medications Medication Instructions Recorded Confirmed Type acetaminophen 325 mg tablet 650 mg PO Q4-6H PRN Pain, Mild 11/21/19 05/10/23 History (Tylenol) polyethylene glycol 400 0.25 % eye 1 % ophthalmic (eye) PRN PRN Dry 11/22/19 05/02/23 History drops (Blink Tears) Eyes cholecalciferol (vitamin D3) 25 25 mcg PO DAILY 05/02/23 05/10/23 History mcg (1,000 unit) tablet (Vitamin D3) cyclobenzaprine 10 mg tablet 10 mg PO TID PRN Spasms 05/02/23 05/02/23 History fish,flax,primrose,borag 2 cap PO DAILY 05/02/23 05/10/23 History oils-om3,6,9 no5 400 mg-400 mg-200 mg capsule vqbwzqij-qcti-dapc 8 mg-folic 400 1 tablet PO DAILY 05/02/23 05/10/23 History mcg-K 50 mcg-lutein 300 mcg tablet (Multivitamin Women 50 Plus) oxycodone-acetaminophen 5 mg-325 1 tablet PO Q4H PRN pain 05/02/23 05/02/23 History mg tablet (Percocet) psyllium seed (sugar) oral powder 1 tbsp PO DAILY 05/02/23 05/02/23 History chlorhexidine gluconate 4 % 1 applic topical DAILY #237 mL 05/03/23 Rx topical liquid (Hibiclens) Patient hx anesthesia problems: none Family hx anesthesia problems: none Results Review: All pre-operative results and documents have been reviewed as part of the pre-operative evaluation. [facility] Past Medical History Medical History Angioedema, hereditary Endometriosis HTN (hypertension) Iliotibial band tendinitis of right side Right knee pain Tear of meniscus of right knee Surgical History Surgical History Ankle fracture, left ORIF [address] Armando Mujica History of cholecystectomy Status post tubal ligation Family History Family History Father Hypertension Mother TIA (transient ischemic attack) Other Cerebrovascular accident Family history of alcoholism Family history of cardiovascular disease Family history of gout Social History Social History Social History: Primary care physician: Dr. Florentino Fuentes Code status: Full code Smoking status: Never smoker Second hand tobacco smoke exposure: No Alcohol intake: current Alcohol use details: rarely Substance use: never Substance use type: does not use Living arrangements: with family Additional living arrangements comments: She lives with her Taj. Her and her recently bought a house in [place]. Occupation/Education: occupation Additional occupation/education comments: She is employed in the [employer] industry. Gender identity (if verbalized by the patient): Female Spiritual care concerns: No Agree to blood products: Yes Anes - Eval Final PreProcedure Day of Procedure 05/10/23 09:58 Patient weight: morbidly obese Heart: regular rate and rhythm Lungs: clear to auscultation Airway: Mallampati scale class II Neurological: alert and oriented Last oral intake: >/= 8 hours ASA classification: III Emergent: no Anesthetic plan: proceed Anesthesia type and
[2023-05-10] MEDS: ceFAZolin 2 GM/D5W 50 ML 2 GM/50 ML BAG IVPB (10:45)
[2023-05-10] MEDS: BUPivacaine HCL 0.5% 10 ML AMP 30 ML INFILTRATE (11:07)
--- NOTE | 2023-05-10 12:31 | P.OP_ITS ---
Procedure Note - Detailed Date of Procedure 05/10/23 Pre-op Diagnosis right lateral meniscus tear Post-op Diagnosis Same Procedure Performed RIGHT KNEE SCOPE Surgeon Armando Mujica MD Anesthesia General Description of Procedure PATIENT WAS TAKEN TO THE OPERATING ROOM SUITE. ANESTHESIA WAS INDUCED. THE RIGHT LEG WAS PREPPED AND DRAPED STERILE. TROCARS WERE PLACED IN TO THE KNEE JOINT IN THE USUAL FASHION. THE CAMERA WAS INTRODUCED. THERE WAS MODERATE CHONDROMALACIA TO THE PATELLA FEMORAL JOINT. THERE WAS A LOT OF SYNOVITIS IN ALL COMPARTMENTS. THE MEDIAL COMPARTMENT SHOWED NO CHONDROMALACIA TO THE MEDIAL FEMORAL CONDYLE OR PLATEAU. THERE WAS NO MEDIAL MENISCUS TEAR. THE ACL WAS INTACT. THE LATERAL M ENISCUS WAS TORN AT THE MID SUBSTANCE AND EXTENDED TO THE POSTERIOR AND MID ANTERIOR HORNS AND WAS A COMPLEX TEAR. THE TEAR WAS RESECTED. THE LATERAL COMPARTMENT HAD MINIMAL CHONDROMALACIA AT THE LATERAL PLATEAU AND LATERAL FEMORAL CONDYLE. A SYNOVECTOMY WAS PREFORMED. THE PATELLO FEMORAL JOINT UNDERWENT CHONDROPLASTY OVER THE PATELLA. THERE WAS GRADE 2 CHONDROMALACIA IN A SMALL SECTION OF THE OF THE PATELLA. SYNOVECTOMY WAS PREFORMED IN THE SUPERIOR MEDIAL COMPARTMENT. THE WOUNDS WERE APPROXIMATED WITH 4.0 NYLON. STERILE DRESSING WAS APPLIED. PATIENT WAS EXTUBATED. Estimated Blood Loss 5 Complications No immediate complications Condition Stable Disposition PACU
[2023-05-10] MEDS: diphenhydrAMINE HCl INJ 50 MG/ML VIAL 12.5 MG IV PUSH (12:35)
[2023-05-10] MEDS: ONDANSETRON INJ 4 MG/2 ML VIAL IV PUSH (13:03)
[2023-05-10] MEDS: fentaNYL CITRATE INJ (*CRX) 100 MCG/2 ML VIAL 25 MCG IV PUSH ×3 (13:12→13:32)
[2023-05-10] MEDS: oxyCODONE HCL (*CRX) 5 MG TAB IR PO (14:10)
== END 2023-05-10 15:08 | disposition home or self-care (01) ==
PROVIDERS: Visit Provider Orthopaedic Surgery
PROC: (CPT 29870; principal; 2023-05-10 10:30)
DX: S83.271A Complex tear of lateral meniscus, current injury, right knee, initial encounter (principal); M22.41 Chondromalacia patellae, right knee; M65.861 Other synovitis and tenosynovitis, right lower leg; X50.0XXA Overexertion from strenuous movement or load, initial encounter; I10 Essential (primary) hypertension; E66.01 Morbid (severe) obesity due to excess calories; Z68.41 Body mass index [BMI] 40.0-44.9, adult
CPT/HCPCS: 29881; 29876; A9270; J0690; J1100; J1170; J1200; J2250; J2405; J2704; J3010; J7120